=== PATIENT | male | born 1980 | race American Indian/Alaskan Native ===

== ENCOUNTER 2022-11-18 01:58 | Emergency (ER) | payer SELFPAY ==
[2022-11-18] VITALS (19 sets, daily range): BP systolic 98–141; BP diastolic 53–83; PULSE 60–100; RESP 12–18; TEMP 35.8; O2SAT 93–100; BMI 28.7
--- NOTE | 2022-11-18 02:14 | CTR_ITS ---
PROCEDURE INFORMATION: Exam: CT Head Without Contrast Exam date and time: 11/18/2022 2:59 AM Age: 42 years old Clinical indication: Altered mental status/memory loss; Additional info: Alcohol intoxication-found down TECHNIQUE: Imaging protocol: Computed tomography of the head without contrast. Radiation optimization: All CT scans at this facility use at least one of these dose optimization techniques: automated exposure control; mA and/or kV adjustment per patient size (includes targeted exams where dose is matched to clinical indication); or iterative reconstruction. REPORTING DATA: Count of CT and Cardiac NM exams in prior 12 months: This patient has received 0 known CTs and 0 known cardiac nuclear medicine studies in the 12 months prior to the current study. COMPARISON: No relevant prior studies available. RADIATION DOSE METRICS: Total DLP (mGy-cm): 1239.68 FINDINGS: Brain: Normal. No hemorrhage. Unremarkable white matter. No mass effect. Cerebral ventricles: No ventriculomegaly. Paranasal sinuses: Visualized sinuses are unremarkable. No fluid levels. Mastoid air cells: Visualized mastoid air cells are well aerated. Bones/joints: Unremarkable. No acute fracture. Soft tissues: Unremarkable. CT/CT head wo con* [id number] IMPRESSION: No acute intracranial abnormality.
--- NOTE | 2022-11-18 02:15 | W.ED.ALCOHOL ---
Documented by User: TARA Todd 11/18/22 03:07 HPI - Alcohol General: Chief Complaint: Alcohol Stated Complaint: ETOH Time Seen by Provider: 11/18/22 02:00 History of Present Illness: Patient is a 39-year-old male comes to the ED via EMS for alcohol intoxication. Police found patient unresponsive on the ground behind a store and [place]. Unknown amount of alcohol consumption or if any drugs were consumed. Patient is sleeping and cannot provide any history and does not respond to any questions. Associated symptoms: Deny abdominal pain, nausea or vomiting Review of Systems Narrative: Unresponsive, with odor of alcohol Const: Denies: fever(s), chills or fatigue Eyes: Denies: change in vision or eye discomfort ENMT: Denies: throat pain, odynophagia, nasal discharge or nasal congestion Card: Denies: chest pain, palpitations, edema, swelling of feet/ankles, dyspnea on exertion or orthopnea Resp: Denies: dyspnea, productive cough or non-productive cough GI: Denies: abdominal pain, nausea, vomiting, diarrhea, constipation or hematochezia : Denies: flank pain, difficulty urinating, dysuria or hematuria Musc: Denies: neck pain, back pain or extremity swelling Skin/Breast: Denies: rash or new lesions Neuro: Reports: other (Unresponsive); Denies: headache(s), numbness in extremities or weakness in extremities Physical Exam Narrative: EXAM NARRATIVE: Patient is laying unresponsive on bed and showing no signs of any respiratory distress. He has his eyes closed and is drooling. I checked a gag reflex and patient did not respond. Const: EXAM LIMITATIONS: altered mental status (Patient is unresponsive) OTHER: No response to gag reflex HENMT: COMMON NORMALS: normocephalic HEAD & SCALP: normocephalic MOUTH: Normal oral and palatal mucosa present THROAT: posterior oropharynx normal and uvula midline Neck/C-Spine: COMMON NORMALS: supple GENERAL: Yes normal visual inspection Resp: COMMON NORMALS: normal respiratory effort, No retractions, No use of accessory muscles and clear to auscultation bilaterally AUSCULTATION: clear to auscultation bilaterally Cardio: COMMON NORMALS: regular rate, regular rhythm, S1 normal heart sound present, S2 normal heart sound present, No gallops present (Cardio), No clicks present (Cardio), No murmurs present (Cardio) and Peripheral pulses 2+ throughout RATE: regular rate RHYTHM: regular rhythm HEART SOUNDS: S1 normal heart sound present and S2 normal heart sound present PERIPHERAL PULSES: Peripheral pulses 2+ throughout GI: COMMON NORMALS: Normal to inspection, nondistended, normoactive bowel sounds present, Soft to palpation, non-tender and no masses PALPATION: Yes Soft to palpation : COMMON NORMALS: Yes no CVA tenderness BLADDER/KIDNEY EXAM: Yes no CVA tenderness Back/Pelvis: COMMON NORMALS: no CVA tenderness Extremity: COMMON NORMALS: normal to inspection Neuro: AUGUSTO COMA SCALE: document GCS findings [place] coma scale total score: 7 Skin: GENERAL SKIN EXAM: dry skin Course ED course: Patient was given Narcan he had a couple episodes of emesis and became a little more alert and responsive. He was able to open his eyes and answer some of our questions accordingly. Vital Signs: Vital signs: Vital Signs Temperature 96.4 F L 11/18/22 01:59 Pulse Rate 82 11/18/22 12:49 Respiratory Rate 18 11/18/22 07:08 Blood Pressure 121/83 11/18/22 12:49 Pulse Oximetry 99 11/18/22 12:49 Oxygen Delivery Me thod 11/18/22 10:16 MDM - Alcohol Medical Decision Making Patient is a 39-year-old male comes to the ED via EMS for alcohol intoxication. Police found patient unresponsive on the ground behind a store and [place]. Unknown amount of alcohol consumption or if any drugs were consumed. Patient was unresponsive to any questioning upon initial evaluation. Vitals are stable. patient did not have gag reflex on initial evaluation of patient. GCS score of 7. He was given Narcan here in the ED and patient became more alert and awake and was able to respond to some of our questions. Blood alcohol level 347. CBC, CMP were unremarkable. The rest of imaging is pending. Dr. Contreras will be taking over patient care and dispo plan. Lab Data I reviewed the patient's lab results. 11/18/22 02:09 11/18/22 02:[address] 11/18/22 02:14 IMPRESSION: No acute intracranial abnormality. Chest X-Ray 11/18/22 02:17 IMPRESSION: No acute findings. Laboratory Results WBC 13.2 10^3/uL (4.0-10.0) H 11/18/22 02:09 RBC 4.30 10^6/uL (4.1-5.3) 11/18/22 02:09 Hgb 13.4 g/dL (11.7-16.6) 11/18/22 02:09 Hct 41.2 % (42.0-52.0) L 11/18/22 02:09 MCV 95.8 fl (80-94) H 11/18/22 02:09 MCH 31.2 pg (28.0-34.0) 11/18/22 02:09 MCHC 32.5 g/dL (30.0-36.0) 11/18/22 02:09 RDW 12.7 % (12.1-15.1) 11/18/22 02:09 Plt Count 292 10^3/cmm (130-400) 11/18/22 02:09 MPV 9.6 fL (7.4-10.4) 11/18/22 02:09 Neut % (Auto) 56.0 % 11/18/22 02:09 Lymph % (Auto) 32.7 % 11/18/22 02:09 [place] % (Auto) 7.1 % 11/18/22 02:09 Eos % (Auto) 2.9 % 11/18/22 02:09 Baso % (Auto) 1.0 % 11/18/22 02:09 Neut # (Auto) 7.38 10^3/uL (1.8-7.7) 11/18/22 02:09 Lymph # (Auto) 4.3 10^3/uL (0.8-4.8) 11/18/22 02:09 [place] # (Auto) 0.9 10^3/uL (0.2-0.9) 11/18/22 02:09 Eos # (Auto) 0.4 10^3/uL (0.0-0.8) 11/18/22 02:09 Baso # (Auto) 0.1 10^3/uL (0.0-0.1) 11/18/22 02:09 Nucleated RBC % (auto) 0 % 11/18/22 02:09 Nucleated RBCs # 0.0 /100WBC 11/18/22 02:09 Sodium 138 mmol/L (136-145) 11/18/22 02:09 Potassium 4.2 mmol/L (3.5-5.1) 11/18/22 02:09 Chloride 103 mmol/L (98-107) 11/18/22 02:09 Carbon Dioxide 23 mmol/L (22-29) 11/18/22 02:09 Anion Gap 16.2 (5-19) 11/18/22 02:09 BUN 13 mg/dL (6-20) 11/18/22 02:09 Creatinine 1.0 mg/dL (0.7-1.2) 11/18/22 02:09 GFR Calculation 81.2 mL/min (90-130) L 11/18/22 02:09 Glucose 81 mg/dL (65-115) 11/18/22 02:09 Calculated Osmolality 285 mOsm/kg (285-295) 11/18/22 02:09 Calcium 8.6 mg/dL (8.5-10.5) 11/18/22 02:09 Total Bilirubin 0.2 mg/dL (0.15-1.2) 11/18/22 02:09 AST 24 U/L (0-40) 11/18/22 02:09 ALT 18 U/L (0-41) 11/18/22 02:09 Alkaline Phosphatase 93 U/L (40-130) 11/18/22 02:09 Total Protein 7.0 g/dL (6.6-8.7) 11/18/22 02:09 Albumin 4.6 g/dL (3.5-5.2) 11/18/22 02:09 Globulin 2.4 g/dL (1.3-4.6) 11/18/22 02:09 Urine Color Yellow (Yellow) 11/18/22 09:20 Urine Appearance Clear (CLEAR) 11/18/22 09:20 Urine pH 5 (5-7) 11/18/22 09:20 Ur Specific [place] 1.015 (1.005-1.030) 11/18/22 09:20 Urine Protein Neg (Negative) 11/18/22 09:20 Urine Glucose (UA) Norm (Normal) 11/18/22 09:20 Urine Ketones 1+ (Negative) H 11/18/22 09:20 Urine Blood 2+ (Negative) H 11/18/22 09:20 Urine Nitrate Negative (Negative) 11/18/22 09:20 Urine Bilirubin Neg (Negative) 11/18/22 09:20 Urine Urobilinogen Norm mg/dL (Negative) 11/18/22 09:20 Ur Leukocyte Esterase Negative (Negative) 11/18/22 09:20 Urine RBC None /hpf (0-2) 11/18/22 09:20 Urine WBC None /hpf (0-5) 11/18/22 09:20 Ur Squamous Epith Cells None /hpf (0-5) 11/18/22 09:20 Amorphous Sediment Not Reportable 11/18/22 09:20 Urine Bacteria None /hpf (NONE) 11/18/22 09:20 Urine Opiates Screen Negative ng/mL (Negative) 11/18/22 09:20 Ur Barbiturates Screen Negative ng/mL (Negative) 11/18/22 09:20 Ur Phencyclidine Scrn Negative ng/mL (Negative) 11/18/22 09:20 Ur Amphetamines Screen Negative ng/mL (Negative) 11/18/22 09:20 U Benzodiazepines Scrn Negative ng/mL (Negative) 11/18/22 09:20 Urine Cocaine Screen Negative ng/mL (Negative) 11/18/22 09:20 U Marijuana (THC) Screen Negative ng/mL (Negative) 11/18/22 09:20 Ethyl Alcohol 297 mg/dL (0-10) H 11/18/22 05:35 Discharge Plan Discharge Patient Disposition: Home Clinical Impression: Alcoholic intoxication Condition: Stable Discharge Orders: Discharge ED (Routine); Ordered 11/18/22 Ordered By: Jordin Manzano Discharge Diet: Advance as tolerated Discharge Activity: Increase activity as tolerated Patient Instructions: Alcohol Intoxication (ED) Activity Restrictions/Additional Instructions: Abstain from alcohol. Return for any thoughts or wishes to harm yourself or anyone else. Coding Level of Care Code ED Instructor Physical Education for Chg Fwd Documented by User: Santhosh Contreras DO 11/18/22 17:44 HPI - Alcohol General: Chief Complaint: Alcohol Stated Complaint: ETOH Time Seen by Provider: 11/18/22 02:00 Physical Exam Neuro: AUGUSTO COMA SCALE: document GCS findings [place]o coma scale eye opening: To pressure [place] coma scale verbal response: None [place] coma scale motor response: Normal flexion [place] coma scale total score: 7 Course Vital Signs: Vital signs: Vital Signs Temperature 96.4 F L 11/18/22 01:59 Pulse Rate 82 11/18/22 12:49 Respiratory Rate 18 11/18/22 07:08 Blood Pressure 121/83 11/18/22 12:49 Pulse Oximetry 99 11/18/22 12:49 Oxygen Delivery Me thod 11/18/22 10:16 MDM - Alcohol Medical Decision Making Patient is a 39-year-old male comes to the ED via EMS for alcohol intoxication. Police found patient unresponsive on the ground behind a store and [place]. Unknown amount of alcohol consumption or if any drugs were consumed. Patient was unresponsive to any questioning upon initial evaluation. Vitals are stable. patient did not have gag reflex on initial evaluation of patient. GCS score of 7. He was given Narcan here in the ED and patient became more alert and awake and was able to respond to some of our questions. Blood alcohol level 347. CBC, CMP were unremarkable. The rest of imaging is pending. Dr. Contreras will be taking over patient care and dispo plan. Head CT reveals nothing acute. Chest x-ray is negative as well. This patient has steadily become more alert, although he is still quite inebriated with alcohol. Repeat alcohol testing is down to 297. At this point, he is not clinically sober enough to be discharged. We will perform repeat interview in a couple of hours after the patient has a chance to sober up. He will be checked out to the oncoming physician at shift change. Lab Data 11/18/22 02:09 11/18/22 02:[address] 11/18/22 02:14 IMPRESSION: No acute intracranial abnormality. Chest X-Ray 11/18/22 02:17 IMPRESSION: No acute findings. Laboratory Results WBC 13.2 10^3/uL (4.0-10.0) H 11/18/22 02:09 RBC 4.30 10^6/uL (4.1-5.3) 11/18/22 02:09 Hgb 13.4 g/dL (11.7-16.6) 11/18/22 02:09 Hct 41.2 % (42.0-52.0) L 11/18/22 02:09 MCV 95.8 fl (80-94) H 11/18/22 02:09 MCH 31.2 pg (28.0-34.0) 11/18/22 02:09 MCHC 32.5 g/dL (30.0-36.0) 11/18/22 02:09 RDW 12.7 % (12.1-15.1) 11/18/22 02:09 Plt Count 292 10^3/cmm (130-400) 11/18/22 02:09 MPV 9.6 fL (7.4-10.4) 11/18/22 02:09 Neut % (Auto) 56.0 % 11/18/22 02:09 Lymph % (Auto) 32.7 % 11/18/22 02:09 [place] % (Auto) 7.1 % 11/18/22 02:09 Eos % (Auto) 2.9 % 11/18/22 02:09 Baso % (Auto) 1.0 % 11/18/22 02:09 Neut # (Auto) 7.38 10^3/uL (1.8-7.7) 11/18/22 02:09 Lymph # (Auto) 4.3 10^3/uL (0.8-4.8) 11/18/22 02:09 [place] # (Auto) 0.9 10^3/uL (0.2-0.9) 11/18/22 02:09 Eos # (Auto) 0.4 10^3/uL (0.0-0.8) 11/18/22 02:09 Baso # (Auto) 0.1 10^3/uL (0.0-0.1) 11/18/22 02:09 Nucleated RBC % (auto) 0 % 11/18/22 02:09 Nucleated RBCs # 0.0 /100WBC 11/18/22 02:09 Sodium 138 mmol/L (136-145) 11/18/22 02:09 Potassium 4.2 mmol/L (3.5-5.1) 11/18/22 02:09 Chloride 103 mmol/L (98-107) 11/18/22 02:09 Carbon Dioxide 23 mmol/L (22-29) 11/18/22 02:09 Anion Gap 16.2 (5-19) 11/18/22 02:09 BUN 13 mg/dL (6-20) 11/18/22 02:09 Creatinine 1.0 mg/dL (0.7-1.2) 11/18/22 02:09 GFR Calculation 81.2 mL/min (90-130) L 11/18/22 02:09 Glucose 81 mg/dL (65-115) 11/18/22 02:09 Calculated Osmolality 285 mOsm/kg (285-295) 11/18/22 02:09 Calcium 8.6 mg/dL (8.5-10.5) 11/18/22 02:09 Total Bilirubin 0.2 mg/dL (0.15-1.2) 11/18/22 02:09 AST 24 U/L (0-40) 11/18/22 02:09 ALT 18 U/L (0-41) 11/18/22 02:09 Alkaline Phosphatase 93 U/L (40-130) 11/18/22 02:09 Total Protein 7.0 g/dL (6.6-8.7) 11/18/22 02:09 Albumin 4.6 g/dL (3.5-5.2) 11/18/22 02:09 Globulin 2.4 g/dL (1.3-4.6) 11/18/22 02:09 Urine Color Yellow (Yellow) 11/18/22 09:20 Urine Appearance Clear (CLEAR) 11/18/22 09:20 Urine pH 5 (5-7) 11/18/22 09:20 Ur Specific [place] 1.015 (1.005-1.030) 11/18/22 09:20 Urine Protein Neg (Negative) 11/18/22 09:20 Urine Glucose (UA) Norm (Normal) 11/18/22 09:20 Urine Ketones 1+ (Negative) H 11/18/22 09:20 Urine Blood 2+ (Negative) H 11/18/22 09:20 Urine Nitrate Negative (Negative) 11/18/22 09:20 Urine Bilirubin Neg (Negative) 11/18/22 09:20 Urine Urobilinogen Norm mg/dL (Negative) 11/18/22 09:20 Ur Leukocyte Esterase Negative (Negative) 11/18/22 09:20 Urine RBC None /hpf (0-2) 11/18/22 09:20 Urine WBC None /hpf (0-5) 11/18/22 09:20 Ur Squamous Epith Cells None /hpf (0-5) 11/18/22 09:20 Amorphous Sediment Not Reportable 11/18/22 09:20 Urine Bacteria None /hpf (NONE) 11/18/22 09:20 Urine Opiates Screen Negative ng/mL (Negative) 11/18/22 09:20 Ur Barbiturates Screen Negative ng/mL (Negative) 11/18/22 09:20 Ur Phencyclidine Scrn Negative ng/mL (Negative) 11/18/22 09:20 Ur Amphetamines Screen Negative ng/mL (Negative) 11/18/22 09:20 U Benzodiazepines Scrn Negative ng/mL (Negative) 11/18/22 09:20 Urine Cocaine Screen Negative ng/mL (Negative) 11/18/22 09:20 U Marijuana (THC) Screen Negative ng/mL (Negative) 11/18/22 09:20 Ethyl Alcohol 297 mg/dL (0-10) H 11/18/22 05:35 Discharge Plan Discharge Patient Disposition: Home Clinical Impression: Alcoholic intoxication Condition: Stable Discharge Orders: Discharge ED (Routine); Ordered 11/18/22 Ordered By: Jordin Manzano Discharge Diet: Advance as tolerated Discharge Activity: Increase activity as tolerated Patient Instructions: Alcohol Intoxication (ED) Activity Restrictions/Additional Instructions: Abstain from alcohol. Return for any thoughts or wishes to harm yourself or anyone else. Coding Level of Care Code ED Instructor Physical Education for Chg Fwd Documented by User: Jordin Manzano MD 11/18/22 12:34 HPI - Alcohol General: Chief Complaint: Alcohol Stated Complaint: ETOH Time Seen by Provider: 11/18/22 02:00 Physical Exam Neuro: AUG[place]O COMA SCALE: document GCS findings [place] coma scale total score: 7 Course ED course: Patient was given Narcan he had a couple episodes of emesis and became a little more alert and responsive. He was able to open his eyes and answer some of our questions accordingly. UPDATE: Patient has been evaluated in the emergency department since I came on shift at 6 AM. He was extremely intoxicated. His medical work-up was otherwise unremarkable. He is here from [place] to help with his aunt and uncle. Patient is now awake. He is asking for food. He does not recall what happened last night. He does have his cell phone and is able to call for sober ride. He does not have any further complaints. Patient will be discharged. Vital Signs: Vital signs: Vital Signs Temperature 96.4 F L 11/18/22 01:59 Pulse Rate 82 11/18/22 12:49 Respiratory Rate 18 11/18/22 07:08 Blood Pressure 121/83 11/18/22 12:49 Pulse Oximetry 99 11/18/22 12:49 Oxygen Delivery Me thod 11/18/22 10:16 MDM - Alcohol Lab Data 11/18/22 02:09 11/18/22 02:[address] 11/18/22 02:14 IMPRESSION: No acute intracranial abnormality. Chest X-Ray 11/18/22 02:17 IMPRESSION: No acute findings. Laboratory Results WBC 13.2 10^3/uL (4.0-10.0) H 11/18/22 02:09 RBC 4.30 10^6/uL (4.1-5.3) 11/18/22 02:09 Hgb 13.4 g/dL (11.7-16.6) 11/18/22 02:09 Hct 41.2 % (42.0-52.0) L 11/18/22 02:09 MCV 95.8 fl (80-94) H 11/18/22 02:09 MCH 31.2 pg (28.0-34.0) 11/18/22 02:09 MCHC 32.5 g/dL (30.0-36.0) 11/18/22 02:09 RDW 12.7 % (12.1-15.1) 11/18/22 02:09 Plt Count 292 10^3/cmm (130-400) 11/18/22 02:09 MPV 9.6 fL (7.4-10.4) 11/18/22 02:09 Neut % (Auto) 56.0 % 11/18/22 02:09 Lymph % (Auto) 32.7 % 11/18/22 02:09 [place] % (Auto) 7.1 % 11/18/22 02:09 Eos % (Auto) 2.9 % 11/18/22 02:09 Baso % (Auto) 1.0 % 11/18/22 02:09 Neut # (Auto) 7.38 10^3/uL (1.8-7.7) 11/18/22 02:09 Lymph # (Auto) 4.3 10^3/uL (0.8-4.8) 11/18/22 02:09 [place] # (Auto) 0.9 10^3/uL (0.2-0.9) 11/18/22 02:09 Eos # (Auto) 0.4 10^3/uL (0.0-0.8) 11/18/22 02:09 Baso # (Auto) 0.1 10^3/uL (0.0-0.1) 11/18/22 02:09 Nucleated RBC % (auto) 0 % 11/18/22 02:09 Nucleated RBCs # 0.0 /100WBC 11/18/22 02:09 Sodium 138 mmol/L (136-145) 11/18/22 02:09 Potassium 4.2 mmol/L (3.5-5.1) 11/18/22 02:09 Chloride 103 mmol/L (98-107) 11/18/22 02:09 Carbon Dioxide 23 mmol/L (22-29) 11/18/22 02:09 Anion Gap 16.2 (5-19) 11/18/22 02:09 BUN 13 mg/dL (6-20) 11/18/22 02:09 Creatinine 1.0 mg/dL (0.7-1.2) 11/18/22 02:09 GFR Calculation 81.2 mL/min (90-130) L 11/18/22 02:09 Glucose 81 mg/dL (65-115) 11/18/22 02:09 Calculated Osmolality 285 mOsm/kg (285-295) 11/18/22 02:09 Calcium 8.6 mg/dL (8.5-10.5) 11/18/22 02:09 Total Bilirubin 0.2 mg/dL (0.15-1.2) 11/18/22 02:09 AST 24 U/L (0-40) 11/18/22 02:09 ALT 18 U/L (0-41) 11/18/22 02:09 Alkaline Phosphatase 93 U/L (40-130) 11/18/22 02:09 Total Protein 7.0 g/dL (6.6-8.7) 11/18/22 02:09 Albumin 4.6 g/dL (3.5-5.2) 11/18/22 02:09 Globulin 2.4 g/dL (1.3-4.6) 11/18/22 02:09 Urine Color Yellow (Yellow) 11/18/22 09:20 Urine Appearance Clear (CLEAR) 11/18/22 09:20 Urine pH 5 (5-7) 11/18/22 09:20 Ur Specific [place] 1.015 (1.005-1.030) 11/18/22 09:20 Urine Protein Neg (Negative) 11/18/22 09:20 Urine Glucose (UA) Norm (Normal) 11/18/22 09:20 Urine Ketones 1+ (Negative) H 11/18/22 09:20 Urine Blood 2+ (Negative) H 11/18/22 09:20 Urine Nitrate Negative (Negative) 11/18/22 09:20 Urine Bilirubin Neg (Negative) 11/18/22 09:20 Urine Urobilinogen Norm mg/dL (Negative) 11/18/22 09:20 Ur Leukocyte Esterase Negative (Negative) 11/18/22 09:20 Urine RBC None /hpf (0-2) 11/18/22 09:20 Urine WBC None /hpf (0-5) 11/18/22 09:20 Ur Squamous Epith Cells None /hpf (0-5) 11/18/22 09:20 Amorphous Sediment Not Reportable 11/18/22 09:20 Urine Bacteria None /hpf (NONE) 11/18/22 09:20 Urine Opiates Screen Negative ng/mL (Negative) 11/18/22 09:20 Ur Barbiturates Screen Negative ng/mL (Negative) 11/18/22 09:20 Ur Phencyclidine Scrn Negative ng/mL (Negative) 02/25/23 09:20 Ur Amphetamines Screen Negative ng/mL (Negative) 11/18/22 09:20 U Benzodiazepines Scrn Negative ng/mL (Negative) 11/18/22 09:20 Urine Cocaine Screen Negative ng/mL (Negative) 11/18/22 09:20 U Marijuana (THC) Screen Negative ng/mL (Negative) 11/18/22 09:20 Ethyl Alcohol 297 mg/dL (0-10) H 11/18/22 05:35 Discharge Plan Discharge Patient Disposition: Home Clinical Impression: Alcoholic intoxication Condition: Stable Discharge Orders: Discharge ED (Routine); Ordered 11/18/22 Ordered By: Jordin Manzano Discharge Diet: Advance as tolerated Discharge Activity: Increase activity as tolerated Patient Instructions: Alcohol Intoxication (ED) Activity Restrictions/Additional Instructions: Abstain from alcohol. Return for any thoughts or wishes to harm yourself or anyone else. Coding Level of Care Code ED Instructor Physical Education for Nallely Henson
[2022-11-18 02:16] LABS: Basophils # 0.1 10^3/uL (0.0-0.1); Eosinophils # 0.4 10^3/uL (0.0-0.8); Eosinophils % 2.9 %; Hematocrit 41.2 % (42.0-52.0); Hemoglobin 13.4 g/dL (11.7-16.6); Lymphocytes # 4.3 10^3/uL (0.8-4.8); Lymphocytes % 32.7 %; Mean Corpuscular HGB Conc 32.5 g/dL (30.0-36.0); Mean Corpuscular Hemoglobin 31.2 pg (28.0-34.0); Mean Corpuscular Volume 95.8 fl (80-94); Mean Platelet Volume 9.6 fL (7.4-10.4); Monocytes # 0.9 10^3/uL (0.2-0.9); Monocytes % 7.1 %; Neutrophils # 7.38 10^3/uL (1.8-7.7); Nucleated Red Blood Cells % 0 %; Platelet Count 292 10^3/cmm (130-400); Red Cell Distribution Width 12.7 % (12.1-15.1); White Blood Count 13.2 10^3/uL (4.0-10.0)
--- NOTE | 2022-11-18 02:17 | XRR_ITS ---
PROCEDURE INFORMATION: Exam: XR Chest Exam date and time: 11/18/2022 3:04 AM Age: 42 years old Clinical indication: Other: AMS; Patient HX: Intoxicated. Found down. Unresponsive. TECHNIQUE: Imaging protocol: Radiologic exam of the chest. Views: 1 view. COMPARISON: No relevant prior studies available. FINDINGS: Lungs: Unremarkable. No consolidation. Pleural spaces: Unremarkable. No pleural effusion. No pneumothorax. Heart/Mediastinum: Unremarkable. No cardiomegaly. Bones/joints: Unremarkable. XR/XR chest 1V portable [id number] IMPRESSION: No acute findings.
[2022-11-18] MEDS: sodium chloride 0.9% 1,000 ML 999 ML IV (02:22)
[2022-11-18] MEDS: ondansetron 2 mg/ML SDV 2 mL 4 MG IVP (02:39)
[2022-11-18 02:50] LABS: Alanine Aminotransferase 18 U/L (0-41); Albumin Level 4.6 g/dL (3.5-5.2); Alkaline Phosphatase 93 U/L (40-130); Aspartate Amino Transferase 24 U/L (0-40); Blood Urea Nitrogen 13 mg/dL (6-20); Calcium 8.6 mg/dL (8.5-10.5); Carbon Dioxide 23 mmol/L (22-29); Chloride 103 mmol/L (98-107); Globulin 2.4 g/dL (1.3-4.6); Glomerular Filtration Rate 81.2 mL/min (90-130); Glucose 81 mg/dL (65-115); Osmolality Calculated 285 mOsm/kg (285-295); Sodium 138 mmol/L (136-145); Total Bilirubin 0.2 mg/dL (0.15-1.2)
[2022-11-18 02:56] LABS: Alcohol Level 347 mg/dL (0-10)
[2022-11-18 02:57] LABS: Anion Gap 16.2 (5-19); Potassium 4.2 mmol/L (3.5-5.1)
[2022-11-18] MEDS: folic acid 1 MG, multivitamin inj 10 ML, thiamine 100 MG in sodium chloride 0.9% 1,000 ML 252.8 MG IV (03:23)
[2022-11-18 06:00] LABS: Alcohol Level 297 mg/dL (0-10)
[2022-11-18 09:43] LABS: Amphetamines Screen Urine Negative (Negative); Barbiturates Screen Urine Negative (Negative); Benzodiazepines Screen Urine Negative (Negative); Cocaine Screen Urine Negative (Negative); Opiate Screen Urine Negative (Negative); PCP Screen Urine Negative (Negative); THC Screen Urine Negative (Negative)
[2022-11-18 09:48] LABS: Add Urine Microscopic? YES; Bilirubin Urine Neg (Negative); Blood Urine 2+ (Negative); Glucose Urine UA Norm (Normal); Ketones Urine 1+ (Negative); Leukocyte Esterase Urine Negative (Negative); Nitrate Urine Negative (Negative); Protein Urine Neg (Negative); Specific Gravity, Urine 1.015 (1.005-1.030); Urine Appearance Clear (CLEAR); Urine Color Yellow (Yellow); Urobilinogen Urine Norm (Negative); pH Urine 5 (5-7)
[2022-11-18 09:51] LABS: Add Urine Culture? No
== END 2022-11-18 12:50 | disposition home or self-care (01) ==
PROVIDERS: Emergency Medicine; Physician Assistant; Emergency Provider Emergency Medicine
DX: F10.129 Alcohol abuse with intoxication, unspecified (principal); Y90.8 Blood alcohol level of 240 mg/100 ml or more
CPT/HCPCS: 70450; 71045; 80053; 80306; 80307; 81001; 85025; 96361; 96374; 96375; 99285; J2310; J2405; J3411; J3490; J7030